=== PATIENT | female | born 1965 | race Caucasian/White ===

== ENCOUNTER 2016-09-18 19:20 | Emergency (ER) | payer OTHER ==
[2016-09-18 19:46] VITALS: BP 112/65; PULSE 74; TEMP 98.1; BMI 31.2
[2016-09-18] MEDS ORDERED: DIPHTH,PERTUSS(ACELL),TET 0.5 ML DISP.SYRIN IM ONE (20:09)
[2016-09-18] MEDS ORDERED: AMPICILLIN NA/SULBACTAM NA 3 GM in SODIUM CHLORIDE 100 ML IVPB ONE (20:09)
--- NOTE | 2016-09-18 20:15 | PDOC ---
History of Present Illness - General Chief Complaint: Bite Stated Complaint: CAT BITE Time Seen by Provider: 09/18/16 19:46 History Source: Patient Exam Limitations: No Limitations - History of Present Illness Initial Comments: 09/18/16 20:11 50 yr female no PMHX states her indoor cat who is 3yrs old bit her left forearm yesterday after trying to escape from getting a bath. Pt has pain to the area no fever or chills. Timing/Duration: reports: yesterday Severity: Yes: moderate Location: reports: extremities (left foreaerm) Past History - Past Medical History Allergies/Adverse Reactions: Allergies Allergy/AdvReac Type Severity Reaction Status Date / Time naproxen AdvReac Intermediate Elevated Verified 08/09/12 12:21 Blood Pressure Home Medications: Ambulatory Orders Calcium Carbonate/Vitamin D3 [Calcium 500 + Vit D 400 Tablet] 1 each PO DAILY Glucosamine HCl/Gluc Bragg [Glucosamine Complex Caplet] 1 each PO DAILY 08/03/12 Amoxicillin/Potassium Clav [Augmentin 875-125 Tablet] 1 each PO BID #14 tablet 09/18/16 Anemia: Yes Asthma: No Cancer: No Cardiac Disorders: No CVA: No COPD: No CHF: No Dementia: No Diabetes: No GI Disorders: No Disorders: No HTN: No Hypercholesterolemia: No Liver Disease: No Seizures: No Thyroid Disease: No - Surgical History Abdominal Surgery: No Appendectomy: No Cardiac Surgery: No Cholecystectomy: No Lung Surgery: No Neurologic Surgery: No Orthopedic Surgery: No - Psycho/Social/Smoking Cessation Hx Anxiety: No Suicidal Ideation: No Smoking Status: No Smoking History: Never smoked Have you smoked in the past 12 months: No Number of Cigarettes Smoked Daily: 0 Cigars Per Day: 0 Information on smoking cessation initiated: No Hx Alcohol Use: No Drug/Substance Use Hx: No Substance Use Type: None Hx Substance Use Treatment: No Review of Systems - Review of Systems Able to Perform ROS?: Yes Is the patient limited [place]ian proficient: No Constitutional: No: Symptoms Reported HEENTM: No: Symptoms Reported Respiratory: No: Symptoms reported Cardiac (ROS): No: Symptoms Reported ABD/GI: No: Symptoms Reported : No: Symptoms Reported Musculoskeletal: No: Symptoms Reported Integumentary: Yes: Symptoms Reported *Physical Exam - Vital Signs Last Vital Signs Temp Pulse Resp BP Pulse Ox 98.1 F 74 18 112/65 99 09/18/16 19:43 09/18/16 19:43 09/18/16 19:43 09/18/16 19:43 09/18/16 19:43 - Physical Exam General Appearance: Yes: Nourished, Appropriately Dressed HEENT: positive: EOMI, MAHESH Neck: positive: Supple Respiratory/Chest: positive: Lungs Clear, Normal Breath Sounds Cardiovascular: positive: Regular Rhythm, Regular Rate Musculoskeletal: positive: Normal Inspection Extremity: positive: Normal Capillary Refill, Other (left mid forearm with 2 puncture wounds with mild surrounding erythema no discharge , no streaking ) Neurologic: positive: Fully Oriented, Alert, Normal Mood/Affect, Normal Response , Motor Strength 09/04 ED Treatment Course - RADIOLOGY Radiology Studies Ordered: Category Date Time Status FOREARM- LEFT [RAD] Stat Radiology 09/18/16 20:09 Ordered Medical Decision Making - Medical Decision Making 09/18/16 20:12 cc: cat bites left forearm yesterday will update tetanus IV unasyn x1 dose xray to r/o FB irrigate the wounds and strict follow up in 48hrs dc on Augmentin Pt understands the risk of infection from cat bite is high and Pt MUST return in 48hrs for a wound check will give sling to keep arm elevated *DC/Admit/Observation/Transfer Diagnosis at time of Disposition: Cat bite Qualifiers: Encounter type: initial encounter Qualified Code(s): W55.01XA - Bitten by cat, initial encounter - Prescriptions Prescriptions: Amoxicillin/Potassium Clav [Augmentin 875-125 Tablet] 1 each PO BID #14 tablet - Patient Instructions Printed Discharge Instructions: DI for Animal Bites Additional Instructions: keep the arm in the sling except to sleep wash with antibacterail soap and water twice a day take the Augmentin as directed Return on Tuesday September 20, 2016 for a wound check , this is VERY IMPORTANT as cat bites can get infected
[2016-09-18] MEDS ORDERED: AMPICILLIN NA/SULBACTAM NA 1.5 GM VIAL ONE (20:17)
== END 2016-09-18 22:14 | disposition home or self-care (01) ==
LOC: JERFT 19:20 → SUPCPDRO 19:20 → JERFT 22:14
DX: Z09 Encounter for follow-up examination after completed treatment for conditions other than malignant neoplasm (principal)
CPT/HCPCS: 73090-TC-LT; 90715; 99281-25

== ENCOUNTER 2016-09-20 11:33 | Emergency (ER) | payer OTHER ==
[2016-09-20 11:51] VITALS: BP 122/77; PULSE 63; TEMP 98; BMI 31.2
--- NOTE | 2016-09-20 12:36 | PDOC ---
Suture Removal/Wound Check HPI - History of Present Illness Chief Complaint: Revisit,Wound Recheck Stated Complaint: REVISIT/ANIMAL BITE Time Seen by Provider: 09/20/16 12:13 History Source: Yes: Patient Exam Limitations: Yes: No Limitations Treated at: [facility] Date of Last ED visit: 09/18/16 - Previous ED Treatment Tetanus Immunization: Yes: Up to Date Antibiotics Prescribed: Yes (augmentin) Past History - Past Medical History Allergies/Adverse Reactions: Allergies naproxen Adverse Reaction (Intermediate, Verified 09/20/16 11:46) Elevated Blood Pressure CRYING & NERVOUS Home Medications: Ambulatory Orders Calcium Carbonate/Vitamin D3 [Calcium 500 + Vit D 400 Tablet] 1 each PO DAILY Glucosamine HCl/Gluc Bragg [Glucosamine Complex Caplet] 1 each PO DAILY 08/03/12 Amoxicillin/Potassium Clav [Augmentin 875-125 Tablet] 1 each PO BID #14 tablet 09/19/16 General: Yes: no pertinent history - Family History Significant Family History: Yes: no pertinent family hx - Reproductive History LMP: 07/05/11 - Social History Smoking History: No Smoking Status: Never smoked Number of Ciarettes Per Day: 0 Cigars Per Day: 0 Alcohol Use: none Drug Use: none Suture Removal/Wound Check PE - Physical Exam Laceration/Wound Check Symptoms: reports: Numbness (left forearm). denies: Pain , Redness Comments: 09/20/16 12:46 left forearm mid forearm with 2 puncture sites clean, dry scabbed. no redness no swelling or drainage non tender FROM of the arm nv intact, limited sensation to the lateral forearm moves all fingers well hand grasp is 5/5 Medical Decision Making - Medical Decision Making 09/20/16 12:43 cc: wound check cat bite 48hrs ago seen in ER recieved Unaysn IV and dc with Augmentin pt states wound is improvien no redness, no streaking no drainage, FROM no swelling pt has numbness to the lateral forearm with tingling to the left finger since the bite. Pt has full strength and motion of the hand I have discussed that pt MUST follow up with her PMD this week as well as the hand surgeon . Pt aware of the plan and agrees to follow up understands the importance of continuing the care for the cat bite. *DC/Admit/Observation/Transfer Diagnosis at time of Disposition: Visit for wound check - Discharge Dispostion Disposition: HOME Condition at time of disposition: Good - Referrals Referrals: Ahsan Rosas MD [Staff Physician] - - Patient Instructions Additional Instructions: continue to take the antibiotics as directed follow with your doctor next week for follow up and with the hand orthopedist for follow up this is to continue the care of your cat bite.
== END 2016-09-20 12:40 | disposition home or self-care (01) ==
LOC: JER 11:33 → JERFT 11:33
DX: Z09 Encounter for follow-up examination after completed treatment for conditions other than malignant neoplasm (principal)
CPT/HCPCS: 99281-25